=== PATIENT | female | born 1995 | race Caucasian/White ===

== ENCOUNTER → 2019-09-13 08:44 | Outpatient (CLI) | payer OTHER, SELFPAY ==
--- NOTE | ~2019-09-13 | US_ITS ---
EXAMINATION: US OB >= 14 weeks Fetus DATE: 09/13/2019 09:27 INDICATION: Second trimester anatomic survey TECHNIQUE: Real-time ultrasound of the pelvis was performed. COMPARISON: None. FINDINGS: There is a single living fetus in vertex presentation. The placenta is posterior and 4.7 cm from the internal cervical os. heart rate is 151 beats per minute (bpm). cardiac activity and fet al movement are noted. The amniotic fluid index is subjectively normal. The upper lip is not clearly demonstrated. The following anatomy was identified as normal: 4 chamber heart 3 vessel cord cord insertion kidneys urinary bladder stomach spine diaphragm ventricles cisterna magna cerebellum The following biometric data were obtained: Biparietal diameter (BPD): 4.0 cm; head circumference (HC): 15.6 cm; abdominal circumference (AC): 12 .3 cm; femur length (FL): 2.5 cm. These measurements are concordant. Estimated weight is 217 g +/- 32 g, which correlates with the 8th percentile when 02/08/2020 is u sed as estimated date of delivery. As single measurements, these parameters are each equal to the following estimated gestational ages w ith ranges of +/- 2 standard deviations: BPD: 18 weeks 2 days ( 16 weeks 4 days - 20 weeks 0 days). HC: 18 weeks 4 days ( 17 weeks 0 days - 20 weeks 0 days). AC: 18 weeks 0 days ( 16 weeks 2 days - 19 weeks 4 days). FL: 17 weeks 6 days ( 16 weeks 3 days - 19 weeks 1 days). estimated gestational age based solely on measurements from this exam is 18 weeks 1 days +/- 1 weeks 2 days. IMPRESSION: 1. Single living fetus in vertex presentation. 2. Estimated weight is 217 g +/- 32 g, which correlates with the 8th percentile when 02/08/2020 i s used as estimated date of delivery. Reviewed, dictated and finalized at location A. ICS TECHNICIAN IMPRESSION: 1. Single living fetus in vertex presentation. 2. Estimated weight is 217 g +/- 32 g, which correlates with the 8th perc entile when 02/08/2020 is used as estimated date of delivery.
== END ==
PROVIDERS: Visit Provider Obstetrics & Gynecology Gynecology
DX: Z36.9 Encounter for antenatal screening, unspecified (principal); Z3A.18 18 weeks gestation of pregnancy
CPT/HCPCS: 76805

== ENCOUNTER → 2019-09-21 13:43 | Outpatient (CLI) | payer OTHER, SELFPAY ==
--- NOTE | ~2019-09-21 | US_ITS ---
US OB limited 09/21/2019 14:04 Indication: survey Procedure: High-resolution Limited symmetrical ultrasound Comparison: 09/13/2019 Findings: There is a single living intrauterine in breech presentation. heart rate is 151 BPM. Placenta is posterior without previa measuring 5.4 cm to the cervix. Amniotic fluid is subj ectively normal. The upper lip is visualized without abnormality. Impression: 1: Single living intrauterine in breech presentation. Reviewed, dictated and finalized at location A. TIFICATION OFFICER Impression: 1: Single living intrauterine in breech presentation.
== END ==
PROVIDERS: Visit Provider Obstetrics & Gynecology Gynecology
DX: Z36.9 Encounter for antenatal screening, unspecified (principal)
CPT/HCPCS: 76815

== ENCOUNTER 2020-02-03 17:55 | Inpatient (IN) | payer OTHER, SELFPAY ==
[2020-02-03] VITALS (12 sets, daily range): BP systolic 106–133; BP diastolic 54–86; PULSE 88–111; RESP 18–20; TEMP 36.3–36.9; BMI 34.4
--- NOTE | 2020-02-03 17:55 | LDADM ---
This patient, Flori Lemos, was admitted to Labor/Delivery/Recovery 107 on 02/03/20 at 17:55. Plans for labor, pain management and were discussed with patient. Patient/family oriented to hospital policies and general routines including ID bracelet, bed and alarms, visiting hours, pain management, procedures, bathroom and other care routines, personal items, smoking policy, room service/diet and guest tray routines, security routines, and visiting hours. Patient/Family are encouraged to report perceived risks to care and to ask questions if they do not understand what they are told or what they should do. See OBIX for further documentation.
[2020-02-03 18:39] LABS: Basophils Percent Auto 0.2 % (0.2-1.2); Eosinophils Absolute Auto 0.2 K/mm3 (0-0.3); Eosinophils Percent Auto 1.5 % (0-4.4); Hematocrit 37.6 % (37.0-47.0); Hemoglobin 12.7 g/dL (12.0-15.0); Immature Granulocyte Absolute 0.06 K/mm3 (0.00-0.031); Immature Granulocyte Percent A 0.5 % (0-0.5); Lymphocytes Absolute Auto 1.83 K/mm3 (0.9-3.2); Lymphocytes Percent Auto 14.2 % (18.3-44.2); Mean Corpuscular HGB Conc 33.8 g/dl (32-36); Mean Corpuscular Hemoglobin 30.9 pg (26-34); Mean Corpuscular Volume 91.5 fl (80-100); Mean Platelet Volume 10.5 fl (7.4-10.4); Monocytes Absolute Auto 0.8 K/mm3 (0.1-0.6); Monocytes Percent Auto 6.1 % (2.6-8.5); Neutrophils Percent Auto 77.5 % (45.5-73.1); Platelet Count Result 231 k/mm3 (150-375); Red Blood Count 4.11 M/mm3 (4.2-5.4); Red Cell Distribution Width 15.2 % (11.5-14.5); White Blood Count 12.9 K/mm3 (4.5-10.0)
[2020-02-03] MEDS: DINOPROSTONE 10 MG VAG INSERT VAGINAL (18:41)
[2020-02-04] VITALS (163 sets, daily range): BP systolic 90–176; BP diastolic 42–89; PULSE 69–127; RESP 18–20; TEMP 36.2–37.7; O2SAT 88–100
[2020-02-04] MEDS: OXYTOCIN 30 UNITS/NS 500 ML 30 UNITS/500 ML BAG 6 UNITS IV CONT (07:34)
[2020-02-04] MEDS: LACTATED RINGERS 1,000 ML 125 ML IV CONT ×3 (07:34→15:39)
--- NOTE | 2020-02-04 10:09 | WPDOBADMIT ---
Obstetrics - Admit Note Admission Note: record reviewed. No pertinent additions to the history and/or any subsequent changes in the physical findings that are not consistent with the expected course of the were found. Additions to the history and/or subsequent changes in the physical findings follow. here for MIL. Cervix 1/th/-2 AROM with clear fluid. FHTs reactive
[2020-02-05] VITALS (81 sets, daily range): BP systolic 102–132; BP diastolic 48–87; PULSE 65–170; RESP 14–21; TEMP 35.9–37; O2SAT 93–100
[2020-02-05] MEDS: SODIUM CHLORIDE 0.9% IV 300 ML 600 ML I-UTERINE (00:17)
--- NOTE | 2020-02-05 02:37 | PM.IMHP ---
H&P: HPI History of Present Illness Chief complaint: Induction of Labor Narrative: Flori Lemos is a 24 year old female G1 at 39 1/7 wks here for MIL. Patient progressed to 4 cm and began having late decelerations. Position change and turning Pitocin down and then off resolved decels. Pitocin restarted and again began having lates. Recommend to proceed with primary csection for intolerance of labor. FHTs now with good acels and variability. Patient questions answered and she agrees to proceed. [facility] Family History Family History (Updated 02/05/20 @ 02:40 by Brianna Ribeiro MD) Father Hypertension Mother Hypertension Grandparent Depression Other No pertinent family history Social History Social History Smoking status: Never smoker Substance use: never Gender identity (if verbalized by the patient): Female Spiritual care concerns: No Meds Home Medications and Allergies Home Medications Medication Instructions Recorded Confirmed Type PNV cmb#95-ferrous fumarate-FA 1 tablet PO DAILY 01/16/20 01/16/20 History [] ergocalciferol (vitamin D2) 1,250 mcg PO WEEKLY 01/16/20 01/16/20 History [Vitamin D2] ferrous sulfate [Iron (ferrous 325 mg PO DAILY 01/16/20 01/16/20 History sulfate)] loratadine [Claritin] 10 mg PO DAILY 01/16/20 01/16/20 History albuterol sulfate 1 puff INHALATION PRN PRN 02/03/20 02/03/20 History docusate sodium [Colace] 200 mg PO DAILY 02/03/20 02/03/20 History Allergies Allergy/AdvReac Type Severity Reaction Status Date / Time Penicillins Allergy Hives Verified 01/16/20 13:28 Vital Signs Vital Signs - 24 hr 02/04/20 05:38 02/04/20 07:35 02/04/20 08:03 Temperature 97.8 F 97.7 F Pulse Rate 90 94 Respiratory Rate 20 Blood Pressure 133/76 130/75 Pulse Oximetry 02/04/20 08:31 02/04/20 09:01 02/04/20 09:31 Temperature Pulse Rate 90 95 90 Respiratory Rate Blood Pressure 127/75 120/71 136/84 Pulse Oximetry 02/04/20 10:31 02/04/20 11:01 02/04/20 11:30 Temperature 98.4 F Pulse Rate 90 98 Respiratory Rate Blood Pressure 132/72 134/81 Pulse Oximetry 02/04/20 11:31 02/04/20 12:01 02/04/20 13:30 Temperature 97.7 F Pulse Rate 91 89 Respiratory Rate Blood Pressure 176/77 H 133/77 Pulse Oximetry 02/04/20 14:24 02/04/20 14:25 02/04/20 14:29 Temperature Pulse Rate 88 Respiratory Rate Blood Pressure 135/64 Pulse Oximetry 97 98 02/04/20 14:31 02/04/20 14:33 02/04/20 14:34 Temperature Pulse Rate 94 86 96 Respiratory Rate Blood Pressure 126/67 124/71 113/80 Pulse Oximetry 99 02/04/20 14:37 02/04/20 14:39 02/04/20 14:40 Temperature Pulse Rate 87 90 Respiratory Rate Blood Pressure 117/61 114/62 Pulse Oximetry 97 02/04/20 14:43 02/04/20 14:44 02/04/20 14:46 Temperature Pulse Rate 98 96 Respiratory Rate Blood Pressure 111/47 L 113/59 L Pulse Oximetry 96 02/04/20 14:49 02/04/20 14:52 02/04/20 14:54 Temperature Pulse Rate 86 99 Respiratory Rate Blood Pressure 114/59 L 103/56 L Pulse Oximetry 96 98 02/04/20 14:55 02/04/20 14:58 02/04/20 14:59 Temperature Pulse Rate 93 94 Respiratory Rate Blood Pressure 111/57 L 105/60 Pulse Oximetry 97 02/04/20 15:01 02/04/20 15:04 02/04/20 15:07 Temperature Pulse Rate 89 83 91 Respiratory Rate Blood Pressure 109/56 L 116/65 105/58 L Pulse Oximetry 96 02/04/20 15:09 02/04/20 15:10 02/04/20 15:13 Temperature Pulse Rate 90 89 Respiratory Rate Blood Pressure 114/61 108/54 L Pulse Oximetry 100 02/04/20 15:14 02/04/20 15:16 02/04/20 15:19 Temperature Pulse Rate 92 84 Respiratory Rate Blood Pressure 101/58 L 110/59 L Pulse Oximetry 99 99 02/04/20 15:22 02/04/20 15:24 02/04/20 15:25 Temperature 97.2 F L Pulse Rate 92 Respiratory Rate Blood Pressure 104/60 Pulse Oximetry 100 02/04/20 15:29 02/04/20
--- NOTE | 2020-02-05 03:25 | PM.OP ---
Procedure Note - Brief Procedure Note - Brief Date of procedure: 02/05/20 Pre-op diagnosis: Induction of Labor intolerance of labor Post-op diagnosis: other (marginal and partial velementous insertion of cord) Procedure performed: primary LTCS Anesthesia: epidural Surgeon: Brianna Ribeiro MD Estimated blood loss (mL): 680 Drains: Yes (feliz) Packing: No Pathology: yes (placenta) Complications: No immediate complications Condition: stable Disposition: PACU Findings: female infant in OP position with Apgars of 9/9 weighing 8# normal appearing tubes, ovaries, and uterus placenta with marginal and partial velementous insertion
--- NOTE | 2020-02-05 03:27 | PM.OBDSVD ---
DS: Admitting Diagnosis Admitting Diagnosis Admitting Diagnosis: IUP 39 wks DS: Discharge Diagnosis Discharge Diagnosis (1) intolerance to labor, delivered, current hospitalization: Code(s): O77.9 - Labor and delivery complicated by stress, unspecified Status: Acute (2) 39 weeks gestation of : Code(s): Z3A.39 - 39 weeks gestation of Status: Acute (3) delivery delivered: Code(s): O82 - Encounter for delivery without indication Status: Acute OB - DS: Summary OB Procedures : Ultrasound OB Procedures Intrapartum: low cervical, transverse OB Procedures: : None Peripartum Data Infant Delivery Method: Section Procedures: Procedures Operation Date: 02/05/20 02:45 <No data on this case meets the specified criteria> complications: none Status at Discharge Functional status at discharge: independent ambulation Overall status at discharge: patient is progressing back to baseline Time Spent with Patient Time attestation: Total time spent providing and/or coordinating discharge services: DS: Data Data Completed and Pending Pending studies at discharge: Pending at discharge 02/05/20 03:06 Surgical [PTH] Routine Discharge Plan Discharge Attending physician on discharge: Brianna Ribeiro Discharging Clinician: Brianna Ribeiro Anticipated Discharge Date/Time: 02/08/20 03:29 Patient Disposition: Home, Self-Care Activity: may shower, may drive after 2 weeks and pelvic rest Diet: regular Wound Care Instructions: incision open to air Discharge Instructions: Education: Mom and Baby Guide Given to: Mother Follow-Up: Call your delivering provider's office for an appointment to be seen in: 1 Week Mom and baby should come to the [facility] for the follow-up appointment. Appointment Date/Time: February 09, 2020 at 11:00 am What to expect at your follow-up visit: Physical Assessment Call [phone] if you are unable to keep your appointment time. BREAST CARE: 1. Wear a snug supportive bra. 2. For engorgement discomfort: Breast Feeding: A. Apply warm moist washcloths B. Express milk as needed to relieve engorgement C. Wear loose clothing 3. For sore nipples: A. Identify correct latch-on B. Apply warm moist washcloths before and after nursing C. Air dry nipples after nursing D. May apply Lansinoh cream to nipples ABDOMINAL INCISION: 1. Allow incision to air dry 2. Do NOT use lotions for powders on your incision 3. When showering, allow soap and water to run over the incision, but do not wash incision PERINEAL CARE: 1. Until bleeding stops, use your jenni bottle after urinating 2. Change your pad frequently throughout the day 3. No tub baths until seen by your physician - You may shower ACTIVITY: 1. Rest as much as possible. 2. Do not exercise or lift anything heavier than your baby (such as laundry or other children.) 3. Avoid stairs or driving as much as possible. 4. Do not put anything into the vagina. No douching, tampons, or sexual activity until seen by physician. NOTIFY PHYSICIAN IF YOU HAVE ANY QUESTIONS OR IF ANY OF THE FOLLOWING SYMPTOMS OCCUR: 1. If your incision becomes red, swollen, or more painful than what you have experienced in the hospital. 2. If your vaginal bleeding becomes foul smelling. 3. If your vaginal bleeding becomes more heavy than a period or if your bleeding changes from pink to bright red. However, you may pass an occasional walnut-sized clot once or twice for the first week . 4. If you experience a sharp, shooting pain in you calves. 5. If you discover a hard, reddened area on your breast or if you experience flu-like symptoms. DIET: 1. Eat regular, well-balanced meals. 2. Drink plenty of fluids daily. If , drink to thirst.
--- NOTE | 2020-02-05 03:43 | WPDANESEPP ---
Anes - Eval Pre Procedure Procedure: Operation Date: 02/05/20 02:45 Proposed Procedures p Section - Brianna Ribeiro MD Date/Time: 02/05/20 03:43 Surgeon: karla Pre Op Diagnosis: Induction of Labor Patient Data Age: 24 Gender: F Height: 1.68 m Weight: 96.8 kg Last Vital Signs Temp 36.6 C 02/05/20 01:45 Pulse 76 02/05/20 03:41 Resp 20 02/04/20 05:38 BP 108/50 L 02/05/20 03:41 Pulse Ox 97 02/05/20 03:39 Allergies Allergy/AdvReac Type Severity Reaction Status Date / Time Penicillins Allergy Hives Verified 01/16/20 13:28 Home Medications Medication Instructions Recorded Confirmed Type PNV cmb#95-ferrous fumarate-FA 1 tablet PO DAILY 01/16/20 01/16/20 History [] ergocalciferol (vitamin D2) 1,250 mcg PO WEEKLY 01/16/20 01/16/20 History [Vitamin D2] ferrous sulfate [Iron (ferrous 325 mg PO DAILY 01/16/20 01/16/20 History sulfate)] loratadine [Claritin] 10 mg PO DAILY 01/16/20 01/16/20 History albuterol sulfate 1 puff INHALATION PRN PRN 02/03/20 02/03/20 History docusate sodium [Colace] 200 mg PO DAILY 02/03/20 02/03/20 History Patient hx anesthesia problems: none Family hx anesthesia problems: none PMFSH Family History Family History (Updated 02/05/20 @ 02:40 by Brianna Ribeiro MD) Father Hypertension Mother Hypertension Grandparent Depression Other No pertinent family history Social History Social History Smoking status: Never smoker Substance use: never Gender identity (if verbalized by the patient): Female Spiritual care concerns: No Exam Day of Procedure 02/05/20 03:43
--- NOTE | 2020-02-05 04:15 | OP_ITS ---
DATE OF PROCEDURE: 02/03/2020 PREOPERATIVE DIAGNOSES: intolerance of labor, intrauterine at 39 weeks. POSTOPERATIVE DIAGNOSES: intolerance of labor, intrauterine at 39 weeks plus marginal insertion of cord with partial velamentous insertion. ANESTHESIA: Epidural. FINDINGS: Female infant in the OP position with Apgars of 9 at 1 minute, 9 at 5 minutes, weighing 8 pounds. Tubes, ovaries, and uterus appear grossly normal. The placenta is noted to have a marginal cord insertion with several vessels inserting into the membrane. ESTIMATED BLOOD LOSS: 680 cc. PATHOLOGY: Placenta. DESCRIPTION OF PROCEDURE: The patient was taken to the operating room, placed under epidural anesthesia, prepped and draped in usual sterile fashion. A Pfannenstiel skin incision was made with a scalpel and carried down to the underlying layer of fascia. Fascia was nicked in the midline and extended laterally using Winkler scissors. Ochsner's was used to tent the fascia, which was then dissected off using sharp and blunt dissection. The rectus muscles were in the midline with the pean. The peritoneum was tented, entered with Metzenbaum's, and extended laterally using blunt traction. The bladder blade was placed. The vesicouterine peritoneum was tented, entered with Metzenbaum's, and extended laterally. Bladder flap was created digitally. The bladder blade was replaced. The lower uterine segment was incised in a transverse fashion with a scalpel and extended laterally using blunt traction. The infant's face was noted to be at the incision. The was brought up into the incision and delivered while the clinical physician assistant applied fundal pressure. The remainder of the infant was delivered. The cord was clamped and cut and the infant was handed to the awaiting nursery nurse. The placenta was removed using manual traction. The above-stated findings of the placenta were noted. The uterus was cleared of all clots and debris and exteriorized. The uterine incision was closed using 0 Monocryl in a running locked fashion. Same suture was used to imbricate. Good hemostasis was noted. The cul-de-sac was irrigated. The uterus was returned to the abdomen. The gutters were irrigated. The uterine incision was again inspected and noted to be hemostatic. The fascia was then closed using 0 Vicryl in a running fashion. Subcutaneous tissues were irrigated and made hemostatic using Bovie cautery. Skin incision was closed using 4-0 Vicryl in a subcuticular fashion. DermaFlex was placed over the incision. Sponge, instrument, and needle counts were correct per the OR staff. The patient was given Ancef prior to skin incision. D I MT: Romelia
--- NOTE | 2020-02-05 06:26 | PC.NURSE ---
0535 Patient transferred on stretcher to room 291. Patient transferred to bed with maxi glide mattress without difficutly. Patient oriented to room, surroundings, security, and plan of care for mother and baby. Patient and her significant other states understanding.
[2020-02-05] MEDS: DEXTROSE 5%/0.45% SOD CHL 1,000 ML 125 ML IV CONT (08:54)
[2020-02-05] MEDS: KETOROLAC 30 MG/ML VIAL (*BKC) IV PUSH ×2 (12:23→17:28)
[2020-02-05] MEDS: DOCUSATE SODIUM 100 MG CAPSULE PO ×2 (12:23→17:28)
[2020-02-06] MEDS: IBUPROFEN 600 MG TABLET PO ×3 (04:11→15:58)
[2020-02-06 05:40] LABS: Basophils Percent Auto 0.2 % (0.2-1.2); Eosinophils Absolute Auto 0.3 K/mm3 (0-0.3); Eosinophils Percent Auto 1.7 % (0-4.4); Hematocrit 35.6 % (37.0-47.0); Hemoglobin 11.6 g/dL (12.0-15.0); Immature Granulocyte Absolute 0.08 K/mm3 (0.00-0.031); Immature Granulocyte Percent A 0.5 % (0-0.5); Lymphocytes Percent Auto 10.7 % (18.3-44.2); Mean Corpuscular HGB Conc 32.6 g/dl (32-36); Mean Corpuscular Hemoglobin 30.6 pg (26-34); Mean Corpuscular Volume 93.9 fl (80-100); Mean Platelet Volume 10.1 fl (7.4-10.4); Monocytes Percent Auto 5.9 % (2.6-8.5); Neutrophils Absolute Auto 13.6 K/mm3 (1.3-6.7); Platelet Count Result 196 k/mm3 (150-375); Red Blood Count 3.79 M/mm3 (4.2-5.4); Red Cell Distribution Width 15.3 % (11.5-14.5); White Blood Count 16.8 K/mm3 (4.5-10.0)
[2020-02-06 07:40] VITALS: BP 134/64; PULSE 85; RESP 16; TEMP 36; O2SAT 97
--- NOTE | 2020-02-06 08:13 | P.PNOB_ITS ---
OB - PN: Subj Subjective Date/time seen: 02/06/20 08:13 Patient comments: no complaints and pain well controlled baby status: doing well OB - PN: Obj Data Labs CBC & Chem 7: 02/06/20 05:28 Labs: Laboratory Results - last 24 hr 02/06/20 05:28 WBC 16.8 H RBC 3.79 L Hgb 11.6 L Hct 35.6 L MCV 93.9 MCH 30.6 MCHC 32.6 RDW 15.3 H Plt Count 196 MPV 10.1 Immature Gran % (Auto) 0.5 Neut % (Auto) 81.0 H Lymph % (Auto) 10.7 L Simpson % (Auto) 5.9 Eos % (Auto) 1.7 Baso % (Auto) 0.2 Lymph # (Auto) 1.80 Simpson # (Auto) 1.0 H Eos # (Auto) 0.3 Baso # (Auto) 0.0 Abs Immat Gran (auto) 0.08 H Absolute Neuts (auto) 13.6 H Absolute Nucleated RBC 0.0 Nucleated RBC % 0.0 OB - PN A/P Plan day: 1 Plan: routine care Time Spent With Patient Time: Total time spent is greater than 50% in coordination of care (as documented) at patient's floor/unit and/or counseling patient: Exam : Bimanual exam- vagina & uterus: other (Uterus firm, nt @U)
--- NOTE | 2020-02-06 08:21 | WPDANLDPN2 ---
Anes-Prog Note L&D Date/Time: 02/06/20 08:21 Comfortable throughout: section Neuraxial method: spinal Epidural/Spinal procedure site: clean & non-tender Neuro status: Neuro function grossly intact. Cardiovascular status: normal Respiratory status: normal Airway patency: baseline Mental status: baseline Post-Op hydration status: normal Vital Signs: Last Vital Signs Temp 36.4 C L 02/05/20 23:20 Pulse 101 H 02/05/20 23:20 Resp 18 02/05/20 23:20 BP 122/69 02/05/20 23:20 Pulse Ox 97 02/05/20 23:20 I/O: Intake & Output 02/05/20 02/06/20 02/06/20 23:59 07:59 15:59 Intake Total 2400 Output Total 2800 Balance -400 Post-procedural complaints: none Patient feedback: Patient satisfied with anesthetic care.
--- NOTE | 2020-02-06 08:22 | WPDANLDNPN2 ---
Anes-Prog Note L&D-Neuraxial Date/Time: 02/06/20 08:22 Neuraxial medications: intrathecal PF morphine Opiod-related complaints: none Patient feedback: Patient satisfied with post-operative pain management.
[2020-02-06] MEDS: DOCUSATE SODIUM 100 MG CAPSULE PO ×2 (09:39→15:58)
[2020-02-06] MEDS: MULTIVIT/MIN/PREN/FOL AC/IRON TABLET 1 TAB PO (09:39)
[2020-02-06 10:02] LABS: Rapid Plasma Reagin Non-Reactive (NonReactive)
--- NOTE | 2020-02-06 16:07 | PC.NURSE ---
Addendum entered by Chani Jackson RN 02/06/20 16:17: pt seen at 1330 Original Note: Mother called out for assist with feeding. Mother states she had great difficulties with latch on Thursday, by the evening she had bruises and cracking to both nipples from what she now understand to be a shallow latch. She bottle fed a few feedings to allow nipples to rest then began nursing with the nipple shield. Mother feels the shield has assisted with a deeper latch and infant is able to maintain latch with minimal tenderness. Mother is allowing infant to nurse 10 minutes each breast, she will then supplement 15mls and pump. Mother is pumping without difficulties or discomfort. Discussed nipple shield precautions and possible complications. Instructions given on application and cleaning of shield. Patient able to return demonstration on proper application of shield. Discussed the need for regular pumping if continues to nurse with the shield. Patient verbalizes understanding. Reviewed feeding cues, frequencies, duration of feedings, feeding elimination flow sheet, and signs of adequate intake. Reviewed positioning/alignment in football, holding breast in C hold and guided asymmetrical latch on. was able to latch correctly. Infant nursed eagerly, with steady draws and occasional swallowing noted. Reviewed signs of a correct latch, effective nursing and suck swallow ratio. was able to maintain latch without discomfort to mother. Nipple care reviewed. released latch 2 times during the feeding, small amounts of formula to shield to entice for continue feeding. When released nipple was into shield rounded to the tip and no sign of compression. Mother reports she has no discomfort with feeding. Suggested mother could allow to nurse up to 20 minutes on one breast, then supplement and pump, allowing a longer break between feeds to allow nipples to heal. Instructed mother to call out for RN assistance if she is unable to latch infant for feeding or she has discomfort with nursing. Instructed feeding should be initiated three hours from start of last feeding or if feeding cues are noted before. Mother voiced understanding of information shared.
[2020-02-06 19:50] VITALS: BP 129/68; PULSE 93; RESP 18; TEMP 36.6; O2SAT 100
[2020-02-07] MEDS: IBUPROFEN 600 MG TABLET PO ×3 (03:38→16:13)
--- NOTE | 2020-02-07 07:30 | PM.OBPNVD ---
OB - PN: Subj Subjective Date/time seen: 02/07/20 07:30 Patient comments: no complaints and pain well controlled baby status: doing well and nursing well OB - PN: Obj Data Labs CBC & Chem 7: 02/06/20 05:28 Labs: Laboratory Results - last 24 hr 02/03/20 18:33 RPR Non-reactive OB - PN A/P Plan day: 2 Plan: routine care Comments: Plans condoms until IUD Time Spent With Patient Time: Total time spent is greater than 50% in coordination of care (as documented) at patient's floor/unit and/or counseling patient: Exam GI: Other: inc c/d/i : Bimanual exam- vagina & uterus: other (Uterus firm, nt @U)
[2020-02-07 08:20] VITALS: BP 100/61; PULSE 76; RESP 18; TEMP 36.6; O2SAT 99
[2020-02-07] MEDS: MULTIVIT/MIN/PREN/FOL AC/IRON TABLET 1 TAB PO (09:53)
[2020-02-07] MEDS: DOCUSATE SODIUM 100 MG CAPSULE PO ×2 (09:53→16:14)
--- NOTE | 2020-02-07 13:29 | PC.NURSE ---
Consulted with patient, reviewed feeding cues, frequencies, duration of feedings, feeding elimination flow sheet, and signs of adequate intake. Reviewed positioning/alignment, holding breast and asymmetrical latch on. Mother has been offering the breast to using a shield, then pumping x 15 min, and supplementing with Enfamil until satiation ranging from 10ml- 25ml. Nipple care reviewed and pt given hydrogels and breast shells to place in bra. Right nipple is more sore than left. Pt has been expressing colostrum and letting nipples open to air as well as applying lanolin prn. Instructed pt to call out for assessment of latch with next feeding. Instructed feeding should be initiated three hours from start of last feeding or if feeding cues are noted before. Mother voiced understanding of information shared.
--- NOTE | 2020-02-07 15:05 | PC.NURSE ---
Called to assess latch. Infant latched using a 24mm nipple shield. Latch noted to be shallow. Unable to open infant's mouth any wider at this time. Pt states that she is feeling a pulling sensation and denies discomfort with use of shield at this time. Encouraged to continue with 15minutes at breast, 15 minutes pumping, then supplementation until satiation.
[2020-02-07 20:00] VITALS: BP 129/71; PULSE 73; RESP 18; TEMP 36.6; O2SAT 98
[2020-02-08] MEDS: IBUPROFEN 600 MG TABLET PO ×2 (02:19→08:19)
[2020-02-08] MEDS: DOCUSATE SODIUM 100 MG CAPSULE PO (08:19)
[2020-02-08 08:50] VITALS: BP 124/83; PULSE 73; RESP 16; TEMP 36.9; O2SAT 99
[2020-02-09 11:28] VITALS: BP 128/81; PULSE 74; RESP 20; TEMP 36.8; O2SAT 99
== END 2020-02-08 10:34 | disposition home or self-care (01) | DRG 788 ==
LOC: ANHLDR 02-05 03:29 → ANHOB2 02-06 12:13 → ANHLDR 02-09 12:09 → ANHOB2 02-09 12:09
PROVIDERS: Admitting Provider Obstetrics & Gynecology Gynecology; Visit Provider Obstetrics & Gynecology
PROC: 10D00Z1 Extraction of Products of Conception, Low, Open Approach (ICD-10-PCS; CPT 59514; principal; 2020-02-05 02:45)
DX: O43.123 Velamentous insertion of umbilical cord, third trimester (principal); Z37.0 Single live birth; Z3A.39 39 weeks gestation of pregnancy; O69.89X0 Labor and delivery complicated by other cord complications, not applicable or unspecified; O36.8330 Maternal care for abnormalities of the fetal heart rate or rhythm, third trimester, not applicable or unspecified
CPT/HCPCS: 36415; 85025; 86592; 86850; 86900; 86901; 88307; A9270; J0131; J0690; J1885; J2274; J2405; J2590; J2795; J7030; J7120

== ENCOUNTER → 2021-04-16 11:23 | Outpatient (CLI) | payer OTHER, SELFPAY ==
--- NOTE | ~2021-04-16 | CT_ITS ---
EXAMINATION: CT sinus wo con DATE: 04/16/2021 11:49 INDICATION: Acute recurrent pansinusitis TECHNIQUE: Computed tomography (CT) of the paranasal sinuses was performed without intravenous contra st. The dose-length product was 268.51 mGy-cm. Automated exposure control and iterative reconstructio n technique were employed. COMPARISON: None FINDINGS: Moderate mucosal thickening of the maxillary, sphenoid, ethmoid and frontal sinuses. Leftwa rd nasal septal deviation. Ostiomeatal units are occluded. Mastoids are pneumatized. No significant m ucoperiosteal reaction. IMPRESSION: 1. Pansinusitis. Reviewed, dictated and finalized at location A. IMPRESSION: 1. Pansinusitis.
== END ==
PROVIDERS: Visit Provider Otolaryngology
DX: J01.41 Acute recurrent pansinusitis (principal)
CPT/HCPCS: 70486

== ENCOUNTER → 2022-03-04 09:03 | Outpatient (CLI) | payer OTHER, SELFPAY ==
--- NOTE | ~2022-03-04 | CT_ITS ---
EXAMINATION: CT sinus wo con DATE: 03/04/2022 09:20 INDICATION: Sinus pressure. Chronic sinusitis. Surgery in May 2021 TECHNIQUE: Computed tomography (CT) of the paranasal sinuses was performed without contrast. Iterativ e reconstruction technique was employed. Exam dose: 295.93 mGy-cm total exam DLP. COMPARISON: 04/16/2021 CT sinuses FINDINGS: There is leftward deviation of the nasal septum. The nasal turbinates are quite prominent i n size bilaterally. Complete opacification the right maxillary ostium, infundibulum and ethmoid bulla. Complete opacification of right maxillary ostium, infundibulum and soft tissue thickening of the left ethmoid bulla. There is complete opacification of the right frontal sinus right ethmoid air cells, prominent soft ti ssue thickening of the left ethmoid stenosis and severe bilateral maxillary sinus mucosal periosteal thickening. Moderate mucoperiosteal thickening of the sphenoid sinuses. The mastoid air cells are normally developed and aerated bilaterally. IMPRESSION: Complete opacification of right frontal and ethmoid sinuses, prominent patchy soft tissu e thickening of left ethmoid air cells Severe mucosal thickening of the maxillary sinuses and moderate mucoperiosteal thickening of the sphe noid sinuses Opacification of the ostiomeatal units Reviewed, dictated and finalized at [facility]. Reviewed, dictated and finalized at [facility]. IMPRESSION: Complete opacification of right frontal and ethmoid sinuses, promi nent patchy soft tissue thickening of left ethmoid air cells Severe mucosal thickening of the maxillary sinuses and moderate mucoperiosteal thickening of the sphenoid sinuses Opacification of the ostiomeatal units
== END ==
PROVIDERS: PCP Otolaryngology; Visit Provider Otolaryngology
DX: J32.4 Chronic pansinusitis (principal)
CPT/HCPCS: 70486